=== PATIENT | male | born 1990 | race Caucasian/White ===

== ENCOUNTER 2025-06-28 11:02 | Emergency (ER) | payer OTHER, SELFPAY ==
[2025-06-28 11:13] VITALS: BP 120/76; PULSE 94; RESP 16; TEMP 36.9; O2SAT 99
[2025-06-28] MEDS: TETRACAINE HCL 0.5% OPHTH SOLN 4 ML BTL 1 DROP RIGHT EYE (11:44)
[2025-06-28] MEDS: FLUORESCEIN SOD 1 MG/STRIP RIGHT EYE (11:44)
[2025-06-28] MEDS: DACRIOSE EYE IRRIGATION 118 ML BOTTLE 10 ML RIGHT EYE (11:44)
--- NOTE | 2025-06-28 12:03 | ED.EYEPROB ---
HPI - Eye Problem General Chief complaint: Eye Problems Stated complaint: Eye Irritation Time Seen by Provider: 06/28/25 11:36 Source: patient and RN notes reviewed Mode of arrival: ambulatory Limitations: no limitations History of Present Illness HPI Narrative: 34-year-old male patient presents today complaining of foreign body and pain to the right eye. He was drilling some metal without safety glasses and felt a piece of metal fly into his eye 1 hour prior to arrival. Pain increases significantly when he opens the eye. Reports decreased vision. He does not wear contacts or glasses. Visual acuity upon arrival: Right eye 20/40, left eye 20/20 Related Data Allergies Allergy/AdvReac Type Severity Reaction Status Date / Time No Known Allergies Allergy Verified 06/28/25 11:14 PMFSH Comments At time of signature, I have reviewed and agree with nursing past medical, surgical, social and family history unless otherwise noted. Please see nursing chart for further information. There is no relevant family history pertinent to the presenting complaint Exam Narrative: GENERAL: Well-appearing, well-nourished, and in moderate pain distress. Patient sitting in darkened room HEAD: Normocephalic, atraumatic. EYES: EOMI. PERRL. Right eye watering. Metal foreign body found and removed from under eyelid. Large corneal abrasion noted overlying the pupil. See procedure note. ENT: Mucous membranes pink and moist. NECK: Normal AROM. CHEST: No respiratory distress. EXTREMITIES: Normal range of motion. No edema. SKIN: Warm, dry, no rash. Capillary refill normal. Normal skin turgor. NEURO: No focal deficits. Alert and oriented x3. Gait steady. PSYCH: Normal affect. No signs of depression or anxiety. Course Course Level of Care: Express Care Visit Vital Signs Vital signs: Vital Signs Temperature 98.5 F 06/28/25 11:13 Pulse Rate 94 06/28/25 11:13 Respiratory Rate 16 06/28/25 11:13 Blood Pressure 120/76 06/28/25 11:13 Pulse Oximetry 99 06/28/25 11:13 Temperature 98.5 F 06/28/25 11:13 Pulse Rate 94 06/28/25 11:13 Respiratory Rate 16 06/28/25 11:13 Blood Pressure 120/76 06/28/25 11:13 Pulse Oximetry 99 06/28/25 11:13 Reviewed Procedures Other Procedure Procedure 1: Other Procedure: Right eye was anesthetized with 1 drop of tetracaine and anesthesia was achieved. The eye was flushed with eye wash. Lid was inverted and examined. Moistened Qtip was used to sweep underneath the upper eyelid with 1 metal foreign body resulting. Cornea was dyed with fluorescein and 1 large abrasion noted overlying the pupil. Pt tolerated procedure well. MDM - Eye Problem MDM Narrative Medical decision making narrative: 34-year-old male patient presents today complaining of foreign body and pain to the right eye. He was drilling some metal without safety glasses and felt a piece of metal fly into his eye 1 hour prior to arrival. Pain increases significantly when he opens the eye. Reports decreased vision. He does not wear contacts or glasses. Visual acuity upon arrival: Right eye 20/40, left eye 20/20. Upon exam, 1 metallic foreign body was retrieved from underneath the upper eyelid with a moistened Q-tip. Large corneal abrasion noted overlying the pupil with fluorescein uptake and Wood's lamp exam. Patient was prescribed some Polytrim to prevent infection. Recommend patient follow-up with an eye doctor in the next few days to ensure proper healing due to large abrasion. Patient agrees with plan. Vital signs stable. Anticipatory guidance given. Differential Diagnosis Differential diagnosis: Likely corneal abrasion, corneal ulcer and other (Foreign body) Critical Care Time Critical Care Time Critical Care Time: No Discharge Plan Discharge Clinical Impression: Corneal abrasion, right Qualifiers: Encounter type: initial encounter Qualified Code(s): S05.01XA - Injury of conjunctiva and corneal abrasion without foreign body, right eye, initial encounter Foreign body of right eye Qualifiers: Encounter type: initial encounter Qualified Code(s): T15.91XA - Foreign body on external eye, part unspecified, right eye, initial encounter Patient Disposition: Home Condition: Stable Instructions: Corneal Abrasion (DC) Additional Instructions: A piece of metal was removed from underneath your eyelid. You also have a large corneal abrasion overlying your pupil. Please use the eyedrops as directed. Please follow-up with an eye doctor next week to ensure that your corneal abrasion is healing properly. Take Tylenol or ibuprofen for pain if needed. Patient Language: Greek Prescriptions: New polymyxin B sulf-trimethoprim 10,000 unit- 1 mg/mL drops 1 drp RIGHT EYE QID 7 Days Qty: 10 0RF Follow-up/Referrals: PHYSICIAN,CORRECTIONS LIEUTENANT [Primary Care Provider, Internal Medicine] Stand Alone Forms: Work/School Release IP Time of Disposition: 12:07
[2025-06-28] MEDS: KETOROLAC (*BKC) 60 MG/2 ML VIAL IM (12:09)
== END 2025-06-28 12:20 | disposition home or self-care (01) ==
PROVIDERS: Emergency Provider Nurse Practitioner
DX: S05.01XA Injury of conjunctiva and corneal abrasion without foreign body, right eye, initial encounter (principal); T15.91XA Foreign body on external eye, part unspecified, right eye, initial encounter; W44.E0XA Non-magnetic metal object unspecified, entering into or through a natural orifice, initial encounter
CPT/HCPCS: 65205; 96372; 99213; A9270; G0463; J1885